=== PATIENT | female | born 1990 | race Caucasian/White ===

== ENCOUNTER 2017-01-11 12:25 | Emergency (ER) | payer MEDICAID, OTHER ==
[~2017-01-11] VITALS: Ht 167.6 cm; Wt 82.0 kg
[~2017-01-11 12:25] MED LIST: MACR100C PO; PYRI200T4 PO; Z.0.NO CURRENT MEDS
[2017-01-11 12:29] VITALS: BP 126/78; PULSE 97; RESP 16; TEMP 97.9; O2SAT 99
[2017-01-11 13:06] LABS: BLOOD, URINE TRACE (NEG); GLUCOSE,URINE NEG (NEG); KETONE, URINE NEG (NEG); NITRITE,URINE POS (NEG); PH, URINE 5.5 (5.0-8.5)
[2017-01-11] MEDS ORDERED: CIPR250T52 PO (13:24)
--- NOTE | 2017-01-11 13:24 | PD ---
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 She believes her IUD is out of position. Duration a few days. The pain is severe at times. Minimal discharge described as spotting noted. Last menstruation was 1 year prior. She is a 0. PFSH Past Medical History Bipolar Disorder: Yes Diminished Hearing: No Musculoskeletal: Yes (FXRIGHT WRIST) ?: Not LMP: IUD-1 YEAR AGO : 0 Ovarian Cysts: Yes Past Surgical History Appendectomy: Yes Gynecologic Surgery: Yes (LEFT OOPHRECTOMY) Social History Alcohol Use: No Tobacco Use: Yes (/2 PPD) Substance Use: No Allergies-Medications (Allergen,Severity, Reaction): Coded Allergies: No Known Allergies (Verified , 01/11/17) Reported Meds & Prescriptions Reported Meds & Active Scripts Active Cipro (Ciprofloxacin HCl) 250 Mg Tab 250 Mg PO BID 3 Days Review of Systems Except as stated in HPI: all other systems reviewed are Neg Physical Exam Narrative GENERAL: 26-year-old female well-nourished well-developed no acute distress GENITOURINARY: Minimal discharge in the vaginal vault. Cervical motion tenderness is present. There is no adnexal mass or tenderness. External genitalia normal. SKIN: Focused skin assessment warm/dry. HEAD: Atraumatic. Normocephalic. EYES: Pupils equal and round. No scleral icterus. No injection or drainage. ENT: No nasal bleeding or discharge. Mucous membranes pink and moist. NECK: Trachea midline. No JVD. CARDIOVASCULAR: Regular rate and rhythm. No murmur appreciated. RESPIRATORY: No accessory muscle use. Clear to auscultation. Breath sounds equal bilaterally. GASTROINTESTINAL: Abdomen soft, non-tender, nondistended. Hepatic and splenic margins not palpable. MUSCULOSKELETAL: No obvious deformities. No clubbing. No cyanosis. No edema. NEUROLOGICAL: Awake and alert. No obvious cranial nerve deficits. Motor grossly within normal limits. Normal speech. PSYCHIATRIC: Appropriate mood and affect; insight and judgment normal. Data Data Last Documented VS Vital Signs Date Time Temp Pulse Resp B/P Pulse Ox O2 Delivery O2 Flow Rate FiO2 01/11/17 12:29 97.9 97 16 126/78 99 vITAL SIGNS REVIEWED Orders Gc And Chlamydia Pcr (01/11/17 12:45) Wet Prep Profile (01/11/17 12:45) Ua Includes Microscopic (01/11/17 12:45) Ed Urine Pregnancytest Poc (01/11/17 12:45) Azithromycin Powd Pack (Zithromax Powd P (01/11/17 13:30) Ceftriaxone Inj (Rocephin Inj) (01/11/17 13:30) Lidocaine 1% Inj (50 Ml) (Xylocaine 1% I (01/11/17 13:30) Ibuprofen (Motrin) (01/11/17 13:30) Labs Laboratory Tests Test 01/11/17 01/11/17 12:50 12:55 Urine Color YELLOW Urine Turbidity CLEAR Urine pH 5.5 Urine Specific Morris 1.020 Urine Protein NEG mg/dL Urine Glucose (UA) NEG mg/dL Urine Ketones NEG mg/dL Urine Occult Blood TRACE Urine Nitrite POS Urine Bilirubin NEG Urine Leukocyte Esterase NEG Urine RBC 0-3 /hpf Urine WBC 0-2 /hpf Urine Squamous Epithelial 0-5 /hpf Cells Urine Bacteria MOD /hpf Clue Cells (Wet Prep) NONE SEEN Vaginal Trichomonas (Wet Prep) NONE SEEN Vaginal Yeast (Wet Prep) NONE SEEN MDM Medical Decision Making Medical Screen Exam Complete: Yes Emergency Medical Condition: Yes Differential Diagnosis IUP, UTI, ectopic , ov torsion, appendicitis, TOA, cervicitis, BV, Trichomoniasis, ov cyst, hernia, mittelschmerz, pain from menstruation Narrative Course Urinalysis shows UTI Wet prep is negative Urine is negative Rocephin and azithromycin. Cipro prescription. Patient has follow-up with gynecology in [place]. She is here for her [facility]. Diagnosis Primary Impression: Cystitis Referrals: Territory Representative call for appointment Additional Instructions: You have a choice when it comes to health care, and we are glad that you chose [facility]. Hopefully, we have met your expectations on today's visit. You are welcome to return to [facility] at any time, as we are committed to meeting the health care needs of our community. Med/Other Pt SpecificInfo: Prescription(s) given Scripts Ciprofloxacin (Cipro)250 Mg [id number] Mg PO BID 3 Days Ref 1 Prov:Salvador Rausch MD 01/11/17 Disposition: 01 DISCHARGE HOME Condition: Stable Salvador Rausch MD Jan 11, 2017 13:24
[2017-01-11 13:26] LABS: URINE COLOR YELLOW (YELLW/STRAW)
[2017-01-11 13:27] LABS: BACTERIA, URINE MOD /hpf; RBC, URINE 0-3 /hpf (0-3); SQUAMOUS EPITHELIAL CELL URINE 0-5 /hpf (0-5); WBC, URINE 0-2 /hpf (0-5)
[2017-01-11] MEDS ORDERED: AZITHROMYCIN PWD FOR SUSP 1 GM PACKET PO ONE (13:30)
[2017-01-11] MEDS ORDERED: cefTRIAXone 250 MG VIAL IM ONE (13:30)
[2017-01-11] MEDS ORDERED: IBUPROFEN 600 MG TAB PO ONE (13:30)
[2017-01-11] MEDS ORDERED: LIDOCAINE HCL 1% 50 ML VIAL IM ONE (13:30)
[2017-01-11 18:32] LABS: CHLAMYDIA PCR NOT DETECTED (NOT DETECT); NEISSERIA PCR NOT DETECTED (NOT DETECT)
== END 2017-01-11 14:15 | disposition home or self-care (01) ==
LOC: PHED 12:25
DX: N30.90 Cystitis, unspecified without hematuria (principal); B96.20 Unspecified Escherichia coli [E. coli] as the cause of diseases classified elsewhere; F17.200 Nicotine dependence, unspecified, uncomplicated
CPT/HCPCS: 81001; 84703; 87077; 87086; 87186; 87210; 87491; 87591; 96372; 99284; J0696